=== PATIENT | male | born 1970 | race Caucasian/White ===

== ENCOUNTER 2019-10-10 11:39 | Emergency (ER) | payer MEDICAID ==
--- NOTE | 2019-10-10 12:02 | EDM.PDOC ---
ED HPI GENERAL MEDICAL PROBLEM - General Chief Complaint: Cardiovascular Problem Stated Complaint: BLOOD PRESSURE Time Seen by Provider: 10/10/19 11:50 - History of Present Illness INITIAL COMMENTS - FREE TEXT/NARRATIVE: -year-old gentleman former smoker presented to ER because he thought his blood pressure was elevated and he was having some discomfort in his chest. She declines to describe his discomfort as pain is more like a tightening sensation. The sensation moves to the arms. At times it feels hot. No shortness of breath. No diaphoresis. no Leg swelling. No hemoptysis. did Not take any medications. Does not recall any exacerbating or mitigating factors. Symptoms are improving spontaneously. chest Pain Score (Numeric/FACES): 2 - Related Data Allergies Allergy/AdvReac Type Severity Reaction Status Date / Time No Known Allergies Allergy Verified 10/10/19 11:46 Home Meds: Home Meds Albuterol Sulfate [Proventil Hfa] 2 puff INH TID 10/10/19 [History] Nicotine [Nicotine Patch] 14 mg TOP DAILY 10/10/19 [History] Past Medical History HEENT History: Reports: None Cardiovascular History: Reports: None Respiratory History: Reports: None Gastrointestinal History: Reports: None Genitourinary History: Reports: None Musculoskeletal History: Reports: None Neurological History: Reports: None Psychiatric History: Reports: None Endocrine/Metabolic History: Reports: None Hematologic History: Reports: None Immunologic History: Reports: None Oncologic (Cancer) History: Reports: None Dermatologic History: Reports: None - Infectious Disease History Infectious Disease History: Reports: Chicken Pox - Past Surgical History Head Surgeries/Procedures: Reports: None HEENT Surgical History: Reports: None Cardiovascular Surgical History: Reports: None Respiratory Surgical History: Reports: None GI Surgical History: Reports: None Male Surgical History: Reports: None Endocrine Surgical History: Reports: None Neurological Surgical History: Reports: None Musculoskeletal Surgical History: Reports: None Dermatological Surgical History: Reports: None Social & Family History - Family History Family Medical History: Noncontributory - Tobacco Use Smoking Status *Q: Former Smoker Used Tobacco, but Quit: Yes Month/Year Tobacco Last Used: 7 weeks - Caffeine Use Caffeine Use: Reports: Coffee - Alcohol Use Days Per Week of Alcohol Use: 7 Number of Drinks Per Day: 6 Total Drinks Per Week: 42 - Recreational Drug Use Recreational Drug Use: No ED ROS GENERAL - Review of Systems Review Of Systems: See Below Constitutional: Reports: No Symptoms HEENT: Reports: No Symptoms Respiratory: Reports: No Symptoms Cardiovascular: Reports: Chest Pain Endocrine: Reports: No Symptoms GI/Abdominal: Reports: No Symptoms : Reports: No Symptoms Musculoskeletal: Reports: No Symptoms Skin: Reports: No Symptoms Neurological: Reports: No Symptoms Psychiatric: Reports: No Symptoms Hematologic/Lymphatic: Reports: No Symptoms Immunologic: Reports: No Symptoms ED EXAM, GENERAL - Physical Exam Exam: See Below Exam Limited By: No Limitations General Appearance: Alert, No Apparent Distress Eye Exam: Bilateral Eye: EOMI Ears: Normal External Exam Nose: Normal Inspection Neck: Normal Inspection, Supple Respiratory/Chest: No Respiratory Distress, Lungs Clear Cardiovascular: Regular Rate, Rhythm, No JVD GI/Abdominal: Soft, Non-Tender (Male) Exam: Deferred Rectal (Males) Exam: Deferred Extremities: Normal Inspection, No Pedal Edema Neurological: Alert, Normal Gait Psychiatric: Normal Affect Skin Exam: Warm EKG INTERPRETATION Rhythm: NSR [place]: Normal QRS: Normal ST-T: Normal QT: Normal Course - Vital Signs Last Recorded V/S: Last Vital Signs Temp 97.0 F 10/10/19 11:43 Pulse 77 10/10/19 17:03 Resp 18 10/10/19 17:03 BP 145/101 H 10/10/19 17:03 Pulse Ox 96 10/10/19 17:03 - Orders/Labs/Meds Orders: Active Orders 24 hr Category Date Time Status EKG 12 Lead [EKG Documentation Completion] [RC] ROUTINE Care 10/10/19 11:51 Active Labs: Laboratory Tests 10/10/19 10/10/19 10/10/19 Range/Units 12:16 12:16 15:57 WBC 5.49 (4.0-11.0) K/uL RBC 5.14 (4.50-5.90) M/uL Hgb 17.6 H (13.0-17.0) g/dL Hct 50.0 (38.0-50.0) % MCV 97.3 (80.0-98.0) fL MCH 34.2 H (27.0-32.0) pg MCHC 35.2 (31.0-37.0) g/dL RDW Std Deviation 46.4 (28.0-62.0) fl RDW Coeff of Shyla 13 (11.0-15.0) % Plt Count 240 (150-400) K/uL MPV 9.30 (7.40-12.00) fL Neut % (Auto) 51.3 (48.0-80.0) % Lymph % (Auto) 29.7 (16.0-40.0) % [place] % (Auto) 10.6 (0.0-15.0) % Eos % (Auto) 7.1 H (0.0-7.0) % Baso % (Auto) 1.3 (0.0-1.5) % Neut # (Auto) 2.8 (1.4-5.7) K/uL Lymph # (Auto) 1.6 (0.6-2.4) K/uL [place] # (Auto) 0.6 (0.0-0.8) K/uL Eos # (Auto) 0.4 (0.0-0.7) K/uL Baso # (Auto) 0.1 (0.0-0.1) K/uL Nucleated RBC % 0.0 /100WBC Nucleated RBCs # 0 K/uL Sodium 140 (136-148) mmol/L Potassium 4.4 (3.5-5.1) mmol/L Chloride 103 (98-107) mmol/L Carbon Dioxide 25.8 (21.0-32.0) mmol/L BUN 15 (7.0-18.0) mg/dL Creatinine 1.2 (0.8-1.3) mg/dL Est Cr Clr Drug Dosing 69.75 mL/min Estimated GFR (MDRD) > 60.0 ml/min Glucose 95 (74-106) mg/dL Calcium 9.6 (8.5-10.1) mg/dL Total Bilirubin 0.6 (0.2-1.0) mg/dL AST 18 (15-37) IU/L ALT 31 (14-63) IU/L Alkaline Phosphatase 68 (46-116) U/L Troponin I < 0.050 < 0.050 (0.000-0.056) ng/mL Total Protein 7.6 (6.4-8.2) g/dL Albumin 4.3 (3.4-5.0) g/dL Globulin 3.3 (2.6-4.0) g/dL Albumin/Globulin Ratio 1.3 (0.9-1.6) Meds: Medications Discontinued Medications Generic Name Dose Route Start Last Admin Trade Name Karlee PRN Reason Stop Dose Admin Acetaminophen 650 mg 10/10/19 12:03 10/10/19 12:12 Tylenol PO 10/10/19 12:04 650 mg NOW ONE Administration Al Hydroxide/Mg Hydroxide 30 ml 10/10/19 12:03 10/10/19 12:13 Mag-Al Plus PO 10/10/19 12:04 30 ml ONETIME ONE Administration - Re-Assessments/Exams Free Text/Narrative Re-Assessment/Exam: 10/10/19 12:04 Heart score of 2, atypical chest discomfort. trop negative x 2. Chest x-ray negative. Patient pain-free. No PE risk factors. PERC Negative. ECG was non ischemic, nsr. 10/10/19 16:46 Can follow-up as an outpatient Return precautions discussed at length with the patient. lifestyle modification was discussed with the patient regarding htn and smoking (has not smoked in weeks) 10/10/19 16:47 10/11/19 07:56 Departure - Departure Time of Disposition: 17:00 Disposition: Home, Self-Care 01 Clinical Impression: Chest pain Instructions: Chest Wall Pain, [id number] Referrals: PCP,None [Primary Care Provider] - Forms: ED Department Discharge Additional Instructions: The following information is given to patients seen in the emergency department who are being discharged to home. This information is to outline your options for follow-up care. We provide all patients seen in our emergency department with a follow-up referral. The need for follow-up, as well as the timing and circumstances, are variable depending upon the specifics of your emergency department visit. If you don't have a primary care physician on staff, we will provide you with a referral. We always advise you to contact your personal physician following an emergency department visit to inform them of the circumstance of the visit and for follow-up with them and/or the need for any referrals to a consulting specialist. The emergency department will also refer you to a specialist when appropriate. This referral assures that you have the opportunity for follow-up care with a specialist. All of these measure are taken in an effort to provide you with optimal care, which includes your follow-up. Under all circumstances we always encourage you to contact your private physician who remains a resource for coordinating your care. When calling for follow-up care, please make the office aware that this follow-up is from your recent emergency room visit. If for any reason you are refused follow-up, please contact the [facility] Emergency Department at and asked to speak to the emergency department charge nurse. [facility] Primary [facility] [address] [place] [id number] [facility] [address] [place] [id number] Sepsis Event Note - Evaluation Sepsis Screening Result: No Definite Risk - Focused Exam Date Exam was Performed: 10/11/19 Time Exam was Performed: 07:56 - My Orders Last 24 Hours: My Active Orders 10/10/19 11:51 EKG 12 Lead [EKG Documentation Completion] [RC] ROUTINE - Assessment/Plan Last 24 Hours: My Active Orders 10/10/19 11:51 EKG 12 Lead [EKG Documentation Completion] [RC] ROUTINE
[2019-10-10] MEDS ORDERED: Aluminum Hydroxide/Magnesium Hydroxide/Simethicone Susp 30 ML Cup PO ONE (12:03)
[2019-10-10] MEDS ORDERED: Acetaminophen 325 MG Tab PO ONE (12:03)
--- NOTE | 2019-10-10 12:44 | CR ---
Chest: 2 views of the chest were obtained. Comparison: No previous chest x-ray. Heart size and mediastinum are normal. Lungs are clear with no acute parenchymal change. Bony structures are unremarkable. Impression: 1. Nothing acute is seen on 2 view chest x-ray. Diagnostic code #1 This report was dictated in Mountain Standard Time
[2019-10-10 12:50] LABS: BLOOD UREA NITROGEN,BUN 15 mg/dL (7.0-18.0); CARBON DIOXIDE,CO2 25.8 mmol/L (21.0-32.0); CHLORIDE,CL 103 mmol/L (98-107); GLUCOSE RANDOM 95 mg/dL (74-106); POTASSIUM,K 4.4 mmol/L (3.5-5.1); SODIUM,NA 140 mmol/L (136-148)
[2019-10-10 17:03] VITALS: BP 145/101; PULSE 77
== END 2019-10-10 17:03 | disposition home or self-care (01) ==
LOC: MW.ED 11:39
DX: R07.89 Other chest pain (principal); Z87.891 Personal history of nicotine dependence
CPT/HCPCS: 36415; 71046; 80053; 84484; 85025; 93005; 99285; A9270; 99284

== ENCOUNTER 2019-10-25 12:22 | Emergency (ER) | payer SELFPAY ==
--- NOTE | 2019-10-25 13:59 | EDM.PDOC ---
ED HPI GENERAL MEDICAL PROBLEM - General Chief Complaint: General Stated Complaint: DIZZY PT CLAIMS HIGH BP OR BLOOD SUGAR Time Seen by Provider: 10/25/19 13:02 - History of Present Illness INITIAL COMMENTS - FREE TEXT/NARRATIVE: HPI 49-year-old male former smoker presents for evaluation of poorly characterized one year long episodic dizziness/lightheaded episodes. Patient reports that over the last year he will sometimes feel lightheaded or dizzy, cannot further characterize but is confident that does not have a room spinning sensation. Patient has had no LOC. Patient experienced recurrent episode today is concerned that he has either high blood pressure or diabetes. Patient denies drug use, recent trauma, changes in vision or hearing, headaches. Patient has not followed up with her PCP. Patient is otherwise is normal state of health. ROS with no recent constitutional symptoms. Exam HR 92, RR 18, BP 149/85, T 36.6C, SaO2 90% on room air. Gen: Pleasant, non-toxic appearing, resting comfortably HEENT: NC, AT, PEERL, EOMI. Resp: Clear to auscultation bilaterally. Unlabored respirations with a normal work of breathing. Card: Regular rate and rhythm. Extremities warm and well perfused. GI: Non-distended. : Deferred MSK: No visible deformities, strength and tone without visually appreciable deficit. Neuro: alert and oriented 3, no facial asymmetry, no gaze preference, no slurring of speech. CN II-III: pupils equal and reactive (4->2mm bilaterally); III, IV, : EOMI, V1-V3: sensation to touch bilaterally intact; VII: no facial asymmetry (frown / smile); VIII: no nystagmus; X: phonation intact, uvula midline; XI: trapezius 5/5 bilaterally, XII: tongue midline. Cerebellar: no pronator drift, [id number] testing without dysmetria bilaterally, heel to romero without dysmetria bilaterally. Gait: normal narrow based gait without ataxia or any instability. Heme/Lymph: Deferred Skin: Normal color with no visible lesions (other than noted above). Psych: Mood and affect appropriate. Labs Accu-Chek 106. MDM Previous chart, nursing note, and vitals reviewed. A: 49-year-old male former smoker presents for evaluation of poorly characterized one year long episodic dizziness/lightheaded episodes. DDx & Evaluation: patient without discernible abnormalities on history, exam, or Accu-Chek. Recommend PCP follow-up for what appears to be an chronic problem without emergent features. Impression: recurrent vertiginous type episodes. - Related Data Allergies Allergy/AdvReac Type Severity Reaction Status Date / Time No Known Allergies Allergy Verified 10/25/19 12:38 Home Meds: Home Meds Albuterol Sulfate [Proventil Hfa] 2 puff INH TID 10/10/19 [History] Past Medical History HEENT History: Reports: None Cardiovascular History: Reports: None Respiratory History: Reports: None Gastrointestinal History: Reports: None Genitourinary History: Reports: None Musculoskeletal History: Reports: None Neurological History: Reports: None Psychiatric History: Reports: None Endocrine/Metabolic History: Reports: None Hematologic History: Reports: None Immunologic History: Reports: None Oncologic (Cancer) History: Reports: None Dermatologic History: Reports: None - Infectious Disease History Infectious Disease History: Reports: Chicken Pox - Past Surgical History Head Surgeries/Procedures: Reports: None HEENT Surgical History: Reports: None Cardiovascular Surgical History: Reports: None Respiratory Surgical History: Reports: None GI Surgical History: Reports: None Male Surgical History: Reports: None Endocrine Surgical History: Reports: None Neurological Surgical History: Reports: None Musculoskeletal Surgical History: Reports: None Dermatological Surgical History: Reports: None Social & Family History - Family History Family Medical History: Noncontributory - Tobacco Use Smoking Status *Q: Former Smoker Years of Tobacco use: 35 Used Tobacco, but Quit: No Month/Year Tobacco Last Used: 09/18/18 - Caffeine Use Caffeine Use: Reports: Coffee - Alcohol Use Days Per Week of Alcohol Use: 7 Number of Drinks Per Day: 6 Total Drinks Per Week: 42 - Recreational Drug Use Recreational Drug Use: No ED ROS GENERAL - Review of Systems Review Of Systems: See Below ED EXAM, GENERAL - Physical Exam Exam: See Below Course - Vital Signs Last Recorded V/S: Last Vital Signs Temp 36.6 C 10/25/19 12:37 Pulse 92 10/25/19 12:37 Resp 18 10/25/19 12:37 BP 145/87 H 10/25/19 12:42 Pulse Ox 98 10/25/19 12:37 - Orders/Labs/Meds Orders: Active Orders 24 hr Category Date Time Status Accu Check [Blood Glucose Check, Bedside] [RC] ONETIME Care 10/25/19 13:28 Active Labs: Laboratory Tests 10/25/19 Range/Units 12:54 POC Glucose 106 (60-110) mg/dL Departure - Departure Time of Disposition: 13:58 Disposition: Home, Self-Care 01 Clinical Impression: Vertigo - Discharge Information Referrals: PCP,None [Primary Care Provider] - Additional Instructions: You were in seen in the [facility] Emergency Department for evaluation of dizzy episodes. At the time of your evaluation the cause of your symptoms is unclear. Please read and follow all of the instructions below. Please follow up with your primary care physician within one week. When calling for follow-up care, please make the office aware that this follow-up is from your recent emergency room visit. If for any reason you are refused follow-up, please contact the [facility] Emergency Department at and asked to speak to the emergency department charge nurse. Your care today was limited to identifying and treating emergent medical problems only. Many people have subtle differences in their test results that require follow up with their outpatient physician(s) to correctly determine if this represents a normal variation or concerning abnormality with respect to your specific health. The care given to you today was limited to identifying and treating emergent medical problems - you need to request a copy of all of your medical records from today's visit and follow up with your outpatient physician(s) to review both today's visit and your overall health. If you have any new symptoms or if you are at all concerned about your health please return immediately to the emergency department. Prescriptions: If you are uninsured or have financial difficulties with filling your prescription(s), you may consider using a free pharmacy discount service such as [employer] ([employer]) or [employer] ([employer]). These services allow you to search for a medication on your phone (or computer) and obtain a coupon that usually has a significant discount from the list thakkar at a pharmacy. Your physician as well as [facility] does not have a financial relationship with either of these services. You may also wish to speak with your physician to determine if lower cost prescriptions are possible. Obtaining primary care: 1. [facility] provides pediatrics (children), family medicine (children, adults, and some obstetrical care), and internal medicine (adults). Further specialty care is also available. Same day appointments are available. They may be contacted at [phone] and are open Thursday through Thursday 8 AM to 5 PM. [facility] are [facility] at [facility], [address], [place] [address]. 2. [facility] offers family medicine, internal medicine, womens health, and further specialty care. [facility] may be contacted at [phone]. [facility] is located at [address] [place], [address]. 3. If you have health insurance, please also contact your insurer for a list of accepting providers under your policy, you may contact these providers for further health care. Occupational health: Work related injuries may consider following up with [facility], . Occupational health services are located at [address] [place] [address] and are open Thursday through Thursday from 7: 30 am to 5:00 pm. Obstetrical and Gynecological Care: [facility], , Thursday through Thursday 8 AM to [address] [place] [address]. Eyecare: If you have an eye injury you should follow up with your cream tester or with [facility], at [phone] or [phone] , they are located at [address] [place] [address]. Dental Care Donell Mosley DDS. [address] [facility] [place], [place]. Ph. [phone] Guille Mosley DDS MS. [address] [facility] [address], [place], [place]. Ph. David Cheung DDS. [address] [place]. Ph. [phone] Luis Palomino DDS. [address] [facility] [address] [place], [place]. Ph. [phone] Yamil Lopez DDS PC. [address] [place], [place]. Ph. Natalie Eaton DDS. [address] [facility]. Ph. [phone] [facility]. [address] [facility], [place], [place]. Ph. [phone] [facility]. [address], [place]. Ph. [phone] [facility] [address] [place] [address]. Ph. [facility]. [address] [place] [address] [address] [place], [place]. Ph. [facility]. [address] [place]. Ph. High Blood Pressure (Hypertension) When you were in the emergency department you had an abnormally high blood pressure. High blood pressure can be without symptoms. However high blood pressure can lead to many medical problems including kidney disease, strokes, and heart attacks. Your blood pressure may have been elevated due to pain or the stress of being in the emergency department, however half of people with an elevated blood pressure in the emergency department have termite control technician problems with high blood pressure. Please see your primary care physician in 2-3 days for a repeat check of your blood pressure. This may help prevent many health serious problems in the future. Please return to the emergency department if you develop any of the following: chest pain, shortness of breath, new or severe headache, changes in vision or hearing, weakness, or if you are otherwise concerned about your health. Sepsis Event Note - Evaluation Sepsis Screening Result: No Definite Risk - Focused Exam Vital Signs: Vital Signs Temp Pulse Resp BP Pulse Ox 10/25/19 12:42 145/87 H 10/25/19 12:37 36.6 C 92 18 149/85 H 98 Date Exam was Performed: 10/25/19 Time Exam was Performed: 13:57 - My Orders Last 24 Hours: My Active Orders 10/25/19 13:28 Accu Check [Blood Glucose Check, Bedside] [RC] ONETIME - Assessment/Plan Last 24 Hours: My Active Orders 10/25/19 13:28 Accu Check [Blood Glucose Check, Bedside] [RC] ONETIME
[2019-10-25 15:03] VITALS: BP 153/99; PULSE 77
== END 2019-10-25 14:17 | disposition home or self-care (01) ==
LOC: MW.ED 12:22
DX: R42 Dizziness and giddiness (principal); Z87.891 Personal history of nicotine dependence
CPT/HCPCS: 82962; 99284

== ENCOUNTER 2020-12-08 20:39 | Emergency (ER) | payer MEDICAID ==
[2020-12-08] MEDS ORDERED: Ondansetron 4 MG/2 ML SDV IVPUSH ONE (20:45)
[2020-12-08] MEDS ORDERED: Ketorolac 15 MG/ML SDV IM ONE ×2 (20:45→21:28)
[2020-12-08] MEDS ORDERED: diphenhydrAMINE 50 MG/ML SDV IVPUSH ONE (21:28)
[2020-12-08] MEDS ORDERED: Prochlorperazine 10 MG/2 ML SDV IVPUSH ONE (21:29)
--- NOTE | 2020-12-08 22:25 | EDM.PDOC ---
ED HPI GENERAL MEDICAL PROBLEM - General Chief Complaint: General Stated Complaint: FLU LIKE SYMPTOMS Time Seen by Provider: 12/08/20 20:40 - History of Present Illness INITIAL COMMENTS - FREE TEXT/NARRATIVE: CHIEF COMPLAINT(S): Headache HISTORY OF PRESENT ILLNESS: This is a 50-year-old man with a past medical history of hypertension and anxiety who comes to the emergency department with a chief complaint of headache. The patient states that yesterday at 10 AM he got a second mild during a shot. He states that since that time he has been experiencing a headache which she cannot describe. He states that it is just hurting. He rates his headache as 10 out of 10. He denies any trouble walking, speaking, swallowing. He denies any blurry vision, loss of vision, double vision, numbness, tingling, weakness. He states that he feels really weak and it feels like the flu. He states that he is experiencing joint pain throughout his body. He denies any fevers or chills, cough or shortness of breath. He states that he did have nausea starting this morning and has vomited multiple times which is nonbloody and nonbilious. He denies any abdominal pain. He states that every time he tries to eat he just feels like he cannot eat anything. He has had decreased appetite. He states he took Tylenol but does not remember at what time. He denies any chest pain or any other symptoms. He denies any Covid exposures. REVIEW OF SYSTEMS: Constitutional: Denies fever, chills. Eyes: Denies eye pain Ears, Nose, Mouth, & Throat: Denies earache Cardiovascular: Denies chest pain Respiratory: Denies shortness of breath Gastrointestinal: Positive for nausea and vomiting. Denies diarrhea, hematochezia, hematemesis, bilious emesis Genitourinary: Denies hematuria Skin:Denies a rash MSK: Positive for joint pain Neurological: Positive for headache. Denies blurred vision, numbness, tingling, weakness Psychiatric: Positive for anxiety PAST MEDICAL HISTORY: As per history of present illness and as reviewed below ot herwise noncontributory. SURGICAL HISTORY: As per history of present illness and as reviewed below otherwise noncontributory. SOCIAL HISTORY: As per history of present illness and as reviewed below otherwise noncontributory. FAMILY HISTORY: As per history of present illness and as reviewed below otherwise noncontributory. EXAMINATION OF ORGAN SYSTEMS/BODY AREAS: Constitutional: Blood pressure is 136/80, heart rate 96, respiratory rate 18 with an oxygen saturation of 96% on room air. Temperature 36.1 General: Overall well-appearing man who is in no acute distress. Psychiatric: Appropriate mood and affect. Eyes: No scleral icterus or conjunctival erythema pupils are equal round reactive to light. Extraocular movements intact. No vertical or horizontal nystagmus. ENMT: Mildly dry mucous membranes. No pharyngeal erythema. Cardiovascular: Regular, rate, and rhythm. No gallops, murmurs, or rubs. Bilateral upper extremity pulses symmetric and intact. No peripheral edema. No JVD. Respiratory: Lungs clear to auscultation bilaterally. No wheezes, rales, or rhonchi. Gastrointestinal: Soft, non-tender, non-distended. Normoactive bowel sounds Genitourinary: No suprapubic tenderness Musculoskeletal: Normal range of motion. Skin: No lesions or abrasions. Neurological: AOx4. CN grossly intact. Strength 5/5 in bilateral upper and lower extremity. Sensation is intact bilaterally in upper and lower extremity. Gait appears normal. Finger to nose, heel to romero, rapid alternating movements intact. MEDICAL DECISION MAKING AND COURSE IN THE ED WITH INTERPRETATION/REVIEW OF D IAGNOSTIC STUDIES: This is a 50-year-old 9 with a past medical history of hypertension and anxiety who comes to the emergency department with 1 day of headache associated with nausea and vomiting after Moderna shot. I do believe this is secondary to known reaction after vaccine shot. However we will obtain a Covid swab. The patient is already saving 1 L of normal saline. We will complete this bolus. We will provide the patient with Toradol and Zofran. We will reevaluate after treatment. Laboratory: Covid is negative. On reevaluation the patient stated that his nausea has improved however his headache is still continued. Therefore we will provide the patient with an additional 15 mg of Toradol, Compazine and Benadryl and reevaluate. On reevaluation, the patient stated that his nausea is resolved and his headache has improved. We will see if the patient is able to tolerate p.o. On reevaluation the patient stated that his headache had improved and was able to tolerate p.o. I did discuss him at this time that I do believe this is secondary to a normal response to the vaccine. Encourage the patient to use Tylenol and Motrin and to continue with p.o. hydration. I did provide the patient with 2 tablets of Zofran for nausea at home as the pharmacies are closed. I discussed that the symptoms should resolve within the next 24 to 48 hours. He is to return for any new or worsening symptoms. He was amenable to discharge at this time and had no further questions. DISPOSITION: The patient was discharged home in stable condition. The patient will follow up with primary care physician as needed CONDITION: Fair PROCEDURES: None FINAL IMPRESSION(S)/DIAGNOSES: 1. Acute expected immune response secondary to COVID-19 vaccine Gee Kyle M.D. Anterior Head Pain Score (Numeric/FACES): 10 - Related Data Allergies Allergy/AdvReac Type Severity Reaction Status Date / Time No Known Allergies Allergy Verified 12/08/20 20:46 Home Meds: Home Meds Albuterol Sulfate [Proventil Hfa] 2 puff INH TID 10/10/19 [History] ALPRAZolam [Xanax] 2 mg PO 12/08/20 [History] Escitalopram [Lexapro] 20 mg PO DAILY 12/08/20 [History] lisinopriL [Lisinopril] 20 mg PO 12/08/20 [History] Past Medical History HEENT History: Reports: None Cardiovascular History: Reports: None Respiratory History: Reports: None Gastrointestinal History: Reports: None Genitourinary History: Reports: None Musculoskeletal History: Reports: None Neurological History: Reports: None Psychiatric History: Reports: None Endocrine/Metabolic History: Reports: None Hematologic History: Reports: None Immunologic History: Reports: None Oncologic (Cancer) History: Reports: None Dermatologic History: Reports: None - Infectious Disease History Infectious Disease History: Reports: Chicken Pox - Past Surgical History Head Surgeries/Procedures: Reports: None HEENT Surgical History: Reports: None Cardiovascular Surgical History: Reports: None Respiratory Surgical History: Reports: None GI Surgical History: Reports: None Male Surgical History: Reports: None Endocrine Surgical History: Reports: None Neurological Surgical History: Reports: None Musculoskeletal Surgical History: Reports: None Dermatological Surgical History: Reports: None Social & Family History - Family History Family Medical History: No Pertinent Family History - Tobacco Use Tobacco Use Status *Q: Former Tobacco User Used Tobacco, but Quit: Yes Month/Year Tobacco Last Used: 6 months - Caffeine Use Caffeine Use: Reports: Coffee - Recreational Drug Use Recreational Drug Use: No ED ROS GENERAL - Review of Systems Review Of Systems: See Below ED EXAM, GENERAL - Physical Exam Exam: See Below Course - Vital Signs Last Recorded V/S: Last Vital Signs Temp 36.6 C 12/08/20 23:18 Pulse 73 12/08/20 23:18 Resp 20 12/08/20 23:18 BP 135/79 12/08/20 23:18 Pulse Ox 98 12/08/20 23:18 - Orders/Labs/Meds Labs: Laboratory Tests 12/08/20 Range/Units 21:11 SARS-CoV-2 RNA (IMAN) NEGATIVE (NEGATIVE) Meds: Medications Discontinued Medications Generic Name Dose Route Start Last Admin Trade Name Freq PRN Reason Stop Dose Admin Diphenhydramine HCl 50 mg 12/08/20 21:28 12/08/20 21:53 Diphenhydramine 50 Mg/Ml Sdv IVPUSH 12/08/20 21:29 50 mg ONETIME ONE Administration Ketorolac Tromethamine 15 mg 12/08/20 20:45 12/08/20 20:58 Ketorolac 15 Mg/Ml Sdv IM 12/08/20 20:46 15 mg ONETIME ONE Administration Ketorolac Tromethamine 15 mg 12/08/20 21:28 12/08/20 21:54 Ketorolac 15 Mg/Ml Sdv IM 12/08/20 21:29 15 mg ONETIME ONE Administration Ondansetron HCl 4 mg 12/08/20 20:45 12/08/20 20:58 Ondansetron 4 Mg/2 Ml Sdv IVPUSH 12/08/20 20:46 4 mg ONETIME ONE Administration Ondansetron HCl 4 mg 12/08/20 23:11 12/08/20 23:25 Ondansetron 4 Mg Tab.Dis PO 12/08/20 23:12 4 mg ONETIME ONE Administration Ondansetron HCl 4 mg 12/08/20 23:11 12/08/20 23:25 Ondansetron 4 Mg Tab.Dis PO 12/08/20 23:12 4 mg ONETIME ONE Administration Prochlorperazine Edisylate 5 mg 12/08/20 21:29 12/08/20 21:53 Prochlorperazine 10 Mg/2 Ml Sdv IVPUSH 12/08/20 21:30 5 mg ONETIME ONE Administration Departure - Departure Time of Disposition: 23:10 Disposition: Home, Self-Care 01 Condition: Fair Clinical Impression: Adverse effect of COVID-19 vaccine - Discharge Information *PRESCRIPTION DRUG MONITORING PROGRAM REVIEWED*: No *COPY OF PRESCRIPTION DRUG MONITORING REPORT IN PATIENT RADHA: No Instructions: COVID-19 Vaccine Information Referrals: Kaylynn Paez NP [Primary Care Provider] - Forms: ED Department Discharge Additional Instructions: You were evaluated today on an emergent basis. At this time I do believe your symptoms are the expected response to the COVID-19 vaccine. Your Covid test was negative today. Typically post vaccine symptoms last approximately 24 to 36 hours. At this time your close to the 24-hour romaine. I do suspect that they will improve. I recommended use Tylenol and Motrin for pain relief and to use Zofran for nausea (1 tablet every 6 hours as needed). If you have any worsening of your symptoms such as chest pain, shortness of breath, passing out please return to the emergency department. Please follow-up with your primary care physician within 5 to 7 days. Please use: Tylenol 500-1000mg every 6 hours (DO NOT TAKE MORE THAN 4000mg in 1 day) Ibuprofen 400mg every 6 hours (Take with food as it can cause ulcers, GI upset) Example schedule: 8:00 AM (Tylenol 500-1000mg) 11:00 AM (Ibuprofen 400mg) 2:00 PM (Tylenol 500-1000mg) 5:00 PM (Ibuprofen 400mg) [facility] [address] [place] [id number] [address] The patient is informed of any results of their evaluation and diagnostic workup and all questions are answered. They are given discharge instructions and return precautions. The patient is stable for discharge. The patient states they understand and agree with the plan and that they will return if their symptoms get worse or if they have any new concerns. The following information is given to patients seen in the emergency department who are being discharged to home. This information is to outline your options for follow-up care. We provide all patients seen in our emergency department with a follow-up referral. The need for follow-up, as well as the timing and circumstances, are variable depending upon the specifics of your emergency department visit. If you don't have a primary care physician on staff, we will provide you with a referral. We always advise you to contact your personal physician following an emergency department visit to inform them of the circumstance of the visit and for follow-up with them and/or the need for any referrals to a consulting specialist. The emergency department will also refer you to a specialist when appropriate. This referral assures that you have the opportunity for follow-up care with a specialist. All of these measure are taken in an effort to provide you with optimal care, which includes your follow-up. Under all circumstances we always encourage you to contact your private physician who remains a resource for coordinating your care. When calling for follow-up care, please make the office aware that this follow-up is from your recent emergency room visit. If for any reason you are refused follow-up, please contact the [facility] Emergency Department at and asked to speak to the emergency department charge nurse. Sepsis Event Note (ED) - Evaluation Sepsis Screening Result: No Definite Risk - Focused Exam Vital Signs: Vital Signs Temp Pulse Resp BP Pulse Ox 12/08/20 23:18 36.6 C 73 20 135/79 98 12/08/20 20:50 36.1 C 96 18 136/80 96
[2020-12-08] MEDS ORDERED: Ondansetron 4 MG Tab.DIS PO ONE ×2 (23:11)
[2020-12-08 23:19] VITALS: BP 135/79; PULSE 73
== END 2020-12-08 23:34 | disposition home or self-care (01) ==
LOC: MW.ED 20:39
DX: R51.9 Headache, unspecified (principal); T50.B95A Adverse effect of other viral vaccines, initial encounter; I10 Essential (primary) hypertension; Z79.899 Other long term (current) drug therapy; Z87.891 Personal history of nicotine dependence; Z20.822 Contact with and (suspected) exposure to COVID-19
CPT/HCPCS: 87635; 96372; 96374; 96375; 99284; A9270; J0780; J1200; J1885; J2405; 99283; U0002

== ENCOUNTER 2021-01-22 16:48 | Emergency (ER) | payer MEDICAID ==
--- NOTE | 2021-01-22 17:33 | EDM.PDOC ---
ED HPI GENERAL MEDICAL PROBLEM - General Chief Complaint: ENT Problem Stated Complaint: TOOTH PAIN Time Seen by Provider: 01/22/21 17:16 Source of Information: Reports: Patient History Limitations: Reports: No Limitations - History of Present Illness INITIAL COMMENTS - FREE TEXT/NARRATIVE: Patient is a 50-year-old male who presents today for tooth pain. Patient states that he has had tooth pain recurrent for the past few years and cannot get into see a dentist. Patient has pain to the right lower jaw with some swelling as well. Patient is able to breathe and swallow okay. Patient denies any other complaints. bottom right teeth Pain Score (Numeric/FACES): 10 - Related Data Allergies Allergy/AdvReac Type Severity Reaction Status Date / Time No Known Allergies Allergy Verified 01/22/21 17:18 Home Meds: Home Meds Albuterol Sulfate [Proventil Hfa] 2 puff INH TID 10/10/19 [History] ALPRAZolam [Xanax] 2 mg PO ASDIRECTED 12/08/20 [History] Escitalopram [Lexapro] 20 mg PO DAILY 12/08/20 [History] lisinopriL [Lisinopril] 20 mg PO DAILY 12/08/20 [History] Past Medical History HEENT History: Reports: None Cardiovascular History: Reports: None Respiratory History: Reports: None Gastrointestinal History: Reports: None Genitourinary History: Reports: None Musculoskeletal History: Reports: None Neurological History: Reports: None Psychiatric History: Reports: None Endocrine/Metabolic History: Reports: None Hematologic History: Reports: None Immunologic History: Reports: None Oncologic (Cancer) History: Reports: None Dermatologic History: Reports: None - Infectious Disease History Infectious Disease History: Reports: Chicken Pox - Past Surgical History Head Surgeries/Procedures: Reports: None HEENT Surgical History: Reports: None Cardiovascular Surgical History: Reports: None Respiratory Surgical History: Reports: None GI Surgical History: Reports: None Male Surgical History: Reports: None Endocrine Surgical History: Reports: None Neurological Surgical History: Reports: None Musculoskeletal Surgical History: Reports: None Dermatological Surgical History: Reports: None Social & Family History - Family History Family Medical History: No Pertinent Family History - Caffeine Use Caffeine Use: Reports: Coffee - Recreational Drug Use Recreational Drug Use: No ED ROS ENT - Review of Systems Review Of Systems: See Below Constitutional: Reports: No Symptoms HEENT: Reports: Dental Pain Respiratory: Reports: No Symptoms Endocrine: Reports: No Symptoms GI/Abdominal: Reports: No Symptoms : Reports: No Symptoms Musculoskeletal: Reports: No Symptoms Skin: Reports: No Symptoms Neurological: Reports: No Symptoms Psychiatric: Reports: No Symptoms Hematologic/Lymphatic: Reports: No Symptoms Immunologic: Reports: No Symptoms ED EXAM, ENT - Physical Exam Exam: See Below Exam Limited By: No Limitations General Appearance: Alert, WD/WN, No Apparent Distress Mouth/Throat: Dental Abcess, Dental Pain. No: Throat Pain, Throat Swelling Head: Atraumatic Respiratory/Chest: No Respiratory Distress Cardiovascular: Normal Peripheral Pulses Extremities: Normal Inspection Neurological: Alert, Oriented Course - Vital Signs Last Recorded V/S: Last Vital Signs Temp 96.9 F 01/22/21 17:15 Pulse 65 01/22/21 17:15 Resp BP 116/78 01/22/21 17:15 Pulse Ox 97 01/22/21 17:15 Departure - Departure Time of Disposition: 17:32 Disposition: Home, Self-Care 01 Condition: Good Clinical Impression: Pain, dental - Discharge Information *PRESCRIPTION DRUG MONITORING PROGRAM REVIEWED*: Not Applicable *COPY OF PRESCRIPTION DRUG MONITORING REPORT IN PATIENT RADHA: Not Applicable Instructions: Dental Abscess Referrals: Kaylynn Paez NP [Primary Care Provider] - Additional Instructions: The following information is given to patients seen in the emergency department who are being discharged to home. This information is to outline your options for follow-up care. We provide all patients seen in our emergency department with a follow-up referral. The need for follow-up, as well as the timing and circumstances, are variable depending upon the specifics of your emergency department visit. If you don't have a primary care physician on staff, we will provide you with a referral. We always advise you to contact your personal physician following an emergency department visit to inform them of the circumstance of the visit and for follow-up with them and/or the need for any referrals to a consulting specialist. The emergency department will also refer you to a specialist when appropriate. This referral assures that you have the opportunity for follow-up care with a specialist. All of these measure are taken in an effort to provide you with optimal care, which includes your follow-up. Under all circumstances we always encourage you to contact your private physician who remains a resource for coordinating your care. When calling for follow-up care, please make the office aware that this follow-up is from your recent emergency room visit. If for any reason you are refused follow-up, please contact the [facility] Emergency Department at and asked to speak to the emergency department charge nurse. Please follow up with your primary care physician. If you do not have a primary care physician, see below: [facility] [address] [place] [id number] [facility] [address] [place] [address] You were seen today for dental pain. We will send you home with antibiotic and topical lidocaine to use for pain. Please schedule follow-up with dentist as soon as reviewed. If you have any increased swelling difficulty breathing or swallowing please return to the ED. Sepsis Event Note (ED) - Evaluation Sepsis Screening Result: No Definite Risk - Focused Exam Vital Signs: Vital Signs Temp Pulse BP Pulse Ox 01/22/21 17:15 96.9 F 65 116/78 97 - Assessment/Plan Plan: Patient is a 50-year-old male who presents today for right lower tooth pain. Seems to be some tenderness on exam. Will send patient home with antibiotics as well as viscous lidocaine and have patient follow-up with dentist as outpatient.
[2021-01-22 17:56] VITALS: BP 105/81; PULSE 82
== END 2021-01-22 17:58 | disposition home or self-care (01) ==
LOC: MW.ED 16:48
DX: K08.89 Other specified disorders of teeth and supporting structures (principal); Z79.899 Other long term (current) drug therapy
CPT/HCPCS: 99282

== ENCOUNTER 2022-01-06 11:40 | Emergency (ER) | payer MEDICAID ==
[2022-01-06 12:36] VITALS: BP 134/79; PULSE 88
== END 2022-01-06 12:36 | disposition home or self-care (01) ==
LOC: MW.ED 11:40
DX: J44.1 Chronic obstructive pulmonary disease with (acute) exacerbation (principal); Z91.048 Other nonmedicinal substance allergy status
CPT/HCPCS: 99284

== ENCOUNTER 2022-04-08 11:01 | Emergency (ER) | payer MEDICAID ==
[2022-04-08] MEDS ORDERED: Acetaminophen/HYDROcodone 325-5 MG Tab PO ONE (11:42)
[2022-04-08 13:32] VITALS: BP 125/68; PULSE 68
== END 2022-04-08 13:19 | disposition home or self-care (01) ==
LOC: MW.ED 11:01
DX: S93.602A Unspecified sprain of left foot, initial encounter (principal); Z91.09 Other allergy status, other than to drugs and biological substances; Z79.899 Other long term (current) drug therapy; X50.1XXA Overexertion from prolonged static or awkward postures, initial encounter
CPT/HCPCS: 73590; 73620; 99283; A9270

== ENCOUNTER 2022-07-31 13:16 | Emergency (ER) | payer MEDICAID ==
[2022-07-31] MEDS ORDERED: Bacitracin Oint 1 GM U/D Packet TOP ONE (13:17)
[2022-07-31] MEDS ORDERED: Ondansetron 4 MG Tab.DIS PO ONE (13:17)
[2022-07-31] MEDS ORDERED: Acetaminophen/HYDROcodone 325-5 MG Tab PO ONE (13:17)
[2022-07-31 14:49] VITALS: BP 128/67; PULSE 76
== END 2022-07-31 14:48 | disposition home or self-care (01) ==
LOC: MW.ED 13:16
DX: S32.2XXA Fracture of coccyx, initial encounter for closed fracture (principal); J45.909 Unspecified asthma, uncomplicated; Z91.048 Other nonmedicinal substance allergy status; Z79.899 Other long term (current) drug therapy; W10.9XXA Fall (on) (from) unspecified stairs and steps, initial encounter
CPT/HCPCS: 72131; 99284; A9270

== ENCOUNTER 2023-06-15 13:03 | Emergency (ER) | payer MEDICAID ==
[2023-06-15] MEDS ORDERED: Sodium Chloride 0.9% 1,000 ML IV ONE (13:10)
[2023-06-15] MEDS ORDERED: Ketorolac 30 MG/ML SDV IVPUSH ONE (13:15)
[2023-06-15 13:40] LABS: BASOPHILS ABSOLUTE AUTO 0.05 K/uL (0.00-0.20); BASOPHILS PERCENT AUTO 0.7 % (0.0-1.0); EOSINOPHILS PERCENT AUTO 4.2 % (0.0-6.0); HEMATOCRIT 44.3 % (42.0-52.0); IMMATURE GRAN ABSOLUTE AUTO 0.02 K/uL (0.00-0.05); IMMATURE GRAN PERCENT AUTO 0.3 % (0.0-0.4); LYMPHOCYTES PERCENT AUTO 22.7 % (24.0-44.0); MEAN CORPUSCULAR HEMOGLOBIN 33.1 pg (28.0-32.0); MEAN CORPUSCULAR HGB CONC 36.1 g/dL (32.0-36.0); MEAN CORPUSCULAR VOLUME 91.5 fL (83.0-99.0); MONOCYTES ABSOLUTE AUTO 0.48 K/uL (0.00-0.80); MONOCYTES PERCENT AUTO 6.8 % (0.0-8.0); NEUTROPHILS ABSOLUTE AUTO 4.61 K/uL (1.80-7.70); NEUTROPHILS PERCENT AUTO 65.3 % (41.0-71.0); PLATELET COUNT,PLT 263 K/uL (150-400); RED BLOOD CELL COUNT 4.84 M/uL (4.52-5.90); WHITE BLOOD CELL COUNT,WBC 7.06 K/uL (3.9-11.3)
[2023-06-15 13:47] LABS: APPEARANCE,URINE CLEAR; BILIRUBIN,URINE NEGATIVE (NEGATIVE); GLUCOSE,URINE NEGATIVE (NEGATIVE); KETONES,URINE TRACE mg/dL (NEGATIVE); LEUKOCYTE ESTERASE,URINE NEGATIVE (NEGATIVE); NITRITE,URINE NEGATIVE (NEGATIVE); OCCULT BLOOD,URINE NEGATIVE (NEGATIVE); PROTEIN,URINE NEGATIVE (NEGATIVE); UROBILINOGEN,URINE 0.2 EU/dL (<2.0)
[2023-06-15 13:50] LABS: COLOR,URINE DARK YELLOW
[2023-06-15 14:09] LABS: A/G RATIO 1.2 (0.9-1.6); ALBUMIN 4.3 g/dL (3.4-5.0); BILIRUBIN TOTAL 0.5 mg/dL (0.2-1.0); CALCIUM 9.6 mg/dL (8.5-10.1); CREATININE 1.5 mg/dL (0.8-1.3); EST CRCL DRUG DOSING (CG) 57.61 mL/min; POTASSIUM,K 4.3 mmol/L (3.5-5.1); PROTEIN TOTAL,TP 7.8 g/dL (6.4-8.2)
[2023-06-15] MEDS ORDERED: Iopamidol 755 MG/ML 500 ML Multipack Bottle IVPUSH STA (14:45)
[2023-06-15 16:16] VITALS: BP 125/79; PULSE 78
== END 2023-06-15 16:44 | disposition home or self-care (01) ==
LOC: MW.ED 13:03
DX: K40.90 Unilateral inguinal hernia, without obstruction or gangrene, not specified as recurrent (principal); J45.909 Unspecified asthma, uncomplicated; Z91.048 Other nonmedicinal substance allergy status; Z79.899 Other long term (current) drug therapy
CPT/HCPCS: 36415; 74177; 80053; 81003; 83690; 85025; 96361; 96374; 99284; J1885; J7030; Q9967

== ENCOUNTER 2023-07-18 11:23 | Emergency (ER) | payer MEDICAID ==
[2023-07-18] MEDS ORDERED: Lidocaine 2% Viscous Solution 15 ML UD PO STA (12:57)
[2023-07-18] MEDS ORDERED: Acetaminophen 500 MG Tab PO STA (12:57)
[2023-07-18] MEDS ORDERED: Prochlorperazine 10 MG/2 ML SDV IVPUSH STA (12:58)
[2023-07-18] MEDS ORDERED: Sodium Chloride 0.9% 1,000 ML IV STA ×2 (12:59)
[2023-07-18] MEDS ORDERED: diphenhydrAMINE 50 MG/ML SDV IVPUSH STA (12:59)
[2023-07-18 13:27] LABS: BASOPHILS ABSOLUTE AUTO 0.01 K/uL (0.00-0.20); BASOPHILS PERCENT AUTO 0.2 % (0.0-1.0); HEMATOCRIT 43.1 % (42.0-52.0); IMMATURE GRAN ABSOLUTE AUTO 0.01 K/uL (0.00-0.05); IMMATURE GRAN PERCENT AUTO 0.2 % (0.0-0.4); LYMPHOCYTES PERCENT AUTO 12.6 % (24.0-44.0); MEAN CORPUSCULAR HEMOGLOBIN 32.9 pg (28.0-32.0); MEAN CORPUSCULAR HGB CONC 34.8 g/dL (32.0-36.0); MEAN CORPUSCULAR VOLUME 94.5 fL (83.0-99.0); MEAN PLATELET VOLUME 9.3 fL (9.4-12.4); MONOCYTES ABSOLUTE AUTO 0.54 K/uL (0.00-0.80); MONOCYTES PERCENT AUTO 11.3 % (0.0-8.0); NEUTROPHILS ABSOLUTE AUTO 3.61 K/uL (1.80-7.70); NEUTROPHILS PERCENT AUTO 75.7 % (41.0-71.0); PLATELET COUNT,PLT 197 K/uL (150-400); RED BLOOD CELL COUNT 4.56 M/uL (4.52-5.90); WHITE BLOOD CELL COUNT,WBC 4.77 K/uL (3.9-11.3)
[2023-07-18 13:44] LABS: CORONAVIRUS COVID-19 NAA POSITIVE (NEGATIVE); INFLUENZA A NAA NEGATIVE (NEGATIVE); INFLUENZA B NAA NEGATIVE (NEGATIVE)
[2023-07-18 13:49] LABS: A/G RATIO 1.2 (0.9-1.6); ALBUMIN 4.1 g/dL (3.4-5.0); BILIRUBIN TOTAL 0.4 mg/dL (0.2-1.0); CALCIUM 9.4 mg/dL (8.5-10.1); CARBON DIOXIDE,CO2 28.6 mmol/L (21.0-32.0); CREATININE 1.2 mg/dL (0.8-1.3); EST CRCL DRUG DOSING (CG) 71.19 mL/min; POTASSIUM,K 4.3 mmol/L (3.5-5.1); PROTEIN TOTAL,TP 7.6 g/dL (6.4-8.2)
[2023-07-18 15:14] VITALS: BP 111/87; PULSE 78
== END 2023-07-18 15:26 | disposition home or self-care (01) ==
LOC: MW.ED 11:23
DX: U07.1 COVID-19 (principal); I10 Essential (primary) hypertension; Z91.048 Other nonmedicinal substance allergy status; Z79.899 Other long term (current) drug therapy
CPT/HCPCS: 0240U; 80053; 85025; 86308; 87651; 96361; 96374; 96375; 99284; A9270; J0780; J1200; J7030

== ENCOUNTER 2024-09-05 09:31 | Day surgery (SDC) | payer MEDICAID ==
[~2024-09-05 09:31] MED LIST: Lactated Ringers 1,000 ML IV SCH
[2024-09-05] MEDS: Lactated Ringers 1,000 ML IV SCH (09:56)
[2024-09-05] MEDS ORDERED: propofoL 500 MG/50 ML 50 ML ONE (11:21)
[2024-09-05] MEDS ORDERED: dexmedeTOMIDine HCl 200 MCG/2 ML SDV ONE (11:38)
[2024-09-05] MEDS ORDERED: Glycopyrrolate 0.2 MG/ML SDV ONE (11:45)
[2024-09-05] MEDS ORDERED: Phenylephrine HCl In 0.9% NaCl 1 MG/10 ML Syringe ONE (11:54)
[2024-09-05] MEDS ORDERED: ePHEDrine 50 MG/ML SDV ONE (11:54)
[2024-09-05] MEDS ORDERED: Atropine 1 MG/ML SDV ONE (12:01)
[2024-09-05] MEDS ORDERED: Lactated Ringers 1,000 ML IV SCH (12:15)
[2024-09-05 12:48] VITALS: BP 101/67; PULSE 102
== END 2024-09-05 13:20 | disposition home or self-care (01) ==
LOC: MW.SDS 09:31
PROVIDERS: ATTEND Surgery
DX: K20.0 Eosinophilic esophagitis (principal); K21.9 Gastro-esophageal reflux disease without esophagitis; K44.9 Diaphragmatic hernia without obstruction or gangrene; I10 Essential (primary) hypertension; J45.909 Unspecified asthma, uncomplicated; K40.90 Unilateral inguinal hernia, without obstruction or gangrene, not specified as recurrent; E78.1 Pure hyperglyceridemia; Z87.891 Personal history of nicotine dependence; Z79.899 Other long term (current) drug therapy
CPT/HCPCS: 43239; 45378; J0461; J1596; J2371; J2704; J7120; 00813; J3490